=== PATIENT | female | born 1965 | race African-American/Black ===

== ENCOUNTER 2021-08-07 13:16 | Observation (INO) ==
[2021-08-07 15:23] LABS: Basophils # 0.1 10*3/uL (0.0-0.2); Basophils % 0.8 % (0.0-0.8); Eosinophils # 0.1 10*3/uL (0.0-0.87); Eosinophils % 1.4 % (0.00-10.9); Hematocrit 32.3 VOL% (35.7-47.0); Hemoglobin 9.9 GM/DL (12.0-16.0); Immature Granulocytes % 0.5 %; Immature Granulocytes Absolute 0.04 #; Lymphocytes # 1.8 10*3/uL (1.4-4.0); Lymphocytes % 21.3 % (21.3-54.2); Mean Corpuscular HGB Conc 30.7 GM/DL (32-36); Mean Corpuscular Volume 85.4 FL (87-102); Mean Platelet Volume 11.4 FL (9.6-12.0); Monocytes % 11.3 % (1.7-12.7); Neutrophils % 64.7 % (38.7-73.9); Platelet Count 259 T/CUMM (130-400); Red Blood Count 3.78 MC/CUMM (3.8-5.5); Red Cell Distribution Width 16.1 % (9.3-17.3); White Blood Count 8.5 T/CUMM (4-12)
[2021-08-07 15:45] LABS: Albumin 2.9 G/DL (3.4-5.0); Calcium 9.3 MG/DL (8.5-10.1); Osmolality,Calculated 283.7 MOS/KG (273-304); Potassium 4.1 MMOL/L (3.5-5.1); Total Protein 6.7 G/DL (6.4-8.2)
[2021-08-07] MEDS ORDERED: DOCUSATE SODIUM 100 MG CAPSULE PO PRN (17:06)
[2021-08-07] MEDS ORDERED: ACETAMINOPHEN 325 MG TABLET PO PRN (17:06)
[2021-08-07] MEDS ORDERED: DEXTROSE 10% 25 GM/250 ML BAG IV PRN (17:06)
[2021-08-07] MEDS ORDERED: ONDANSETRON 4 MG/2 ML VIAL IV PRN (17:06)
[2021-08-07] MEDS ORDERED: hydrALAZINE 20 MG/1 ML VIAL IV PRN (17:06)
[2021-08-07] MEDS ORDERED: GLUCAGON 1 MG VIAL IM PRN (17:06)
[2021-08-07] MEDS ORDERED: MAGNESIUM SULF RIDER 4 GM/100 ML PREMIX IV ONE ×2 (17:10→20:00)
[2021-08-07] MEDS ORDERED: NITROGLYCERIN SL 0.4 MG TABLET SL PRN (17:11)
[2021-08-07 18:19] LABS: Risk Ratio 4.43; Thyroid Stimulating Hormone 1.08 uIU/ml (0.358-3.74); VLDL Cholesterol 15.2 MG/DL
[2021-08-07] MEDS: FUROSEMIDE 40 MG/4 ML VIAL IV SCH (19:57)
[2021-08-07] MEDS: ENOXAPARIN 40 MG/0.4 ML SYRINGE SUBCUT SCH (19:58)
[2021-08-07] MEDS: ATORVASTATIN 80 MG TABLET PO SCH (22:06)
[2021-08-07] MEDS: INSULIN LISPRO 100 UNIT/ML SUBCUT SCH (22:07)
[2021-08-08 04:25] LABS: Basophils # 0.1 10*3/uL (0.0-0.2); Basophils % 0.6 % (0.0-0.8); Eosinophils # 0.1 10*3/uL (0.0-0.87); Eosinophils % 1.4 % (0.00-10.9); Hematocrit 30.4 VOL% (35.7-47.0); Hemoglobin 9.4 GM/DL (12.0-16.0); Immature Granulocytes % 0.2 %; Immature Granulocytes Absolute 0.02 #; Lymphocytes # 2.7 10*3/uL (1.4-4.0); Lymphocytes % 31.7 % (21.3-54.2); Mean Corpuscular HGB Conc 30.9 GM/DL (32-36); Mean Corpuscular Volume 85.2 FL (87-102); Mean Platelet Volume 11.4 FL (9.6-12.0); Neutrophils % 54.1 % (38.7-73.9); Platelet Count 231 T/CUMM (130-400); Red Blood Count 3.57 MC/CUMM (3.8-5.5); Red Cell Distribution Width 15.9 % (9.3-17.3); White Blood Count 8.6 T/CUMM (4-12)
[2021-08-08 04:53] LABS: Calcium 9.1 MG/DL (8.5-10.1); Osmolality,Calculated 281.5 MOS/KG (273-304); Potassium 3.5 MMOL/L (3.5-5.1)
[2021-08-08] MEDS ORDERED: NON-FORMULARY MEDICATION (Losartan 100 mg Tablet) PO SCH (09:00)
[2021-08-08] MEDS ORDERED: LOSARTAN 50 MG TABLET PO SCH (09:00)
[2021-08-08] MEDS ORDERED: SPIRONOLACTONE 50 MG TABLET PO SCH (09:00)
[2021-08-08] MEDS ORDERED: POTASSIUM CHLORIDE 20 MEQ TABLET PO ONE (09:10)
[2021-08-08] MEDS ORDERED: MAGNESIUM SULF RIDER 2 GM/50 ML PREMIX IV ONE (09:11)
[2021-08-08] MEDS: MAGNESIUM CHLORIDE 64 MG TABLET PO SCH (09:22)
[2021-08-08] MEDS: ASPIRIN CHEW 81 MG TABLET PO SCH (09:23)
[2021-08-08] MEDS: DAPAGLIFLOZIN 10 MG TABLET PO SCH (09:23)
[2021-08-08] MEDS: CLOPIDOGREL 75 MG TABLET PO SCH (09:23)
[2021-08-08] MEDS: METOPROLOL SUCCINATE XL 100 MG TABLET PO SCH (09:23)
[2021-08-08] MEDS: SPIRONOLACTONE 25 MG TABLET PO SCH (09:23)
[2021-08-08] MEDS: INSULIN LISPRO 100 UNIT/ML SUBCUT SCH ×4 (09:24→21:17)
[2021-08-08] MEDS ORDERED: ALTEPLASE 2 MG VIAL IV ONE (09:30)
[2021-08-08] MEDS ORDERED: HEPARIN 10,000 UNIT/10 ML VIAL IV SCH (09:30)
[2021-08-08] MEDS: FUROSEMIDE 40 MG/4 ML VIAL IV SCH (09:34)
[2021-08-08] MEDS: ASCORBIC ACID 500 MG TABLET PO SCH ×2 (11:04→21:17)
[2021-08-08] MEDS: MECLIZINE 12.5 MG TABLET PO SCH ×2 (11:16→21:17)
[2021-08-08] MEDS: ENOXAPARIN 40 MG/0.4 ML SYRINGE SUBCUT SCH (17:46)
[2021-08-08] MEDS: ATORVASTATIN 80 MG TABLET PO SCH (21:17)
[2021-08-09 05:04] LABS: Basophils # 0.1 10*3/uL (0.0-0.2); Basophils % 0.9 % (0.0-0.8); Eosinophils # 0.3 10*3/uL (0.0-0.87); Eosinophils % 3.7 % (0.00-10.9); Hematocrit 31.2 VOL% (35.7-47.0); Hemoglobin 9.5 GM/DL (12.0-16.0); Immature Granulocytes % 0.5 %; Immature Granulocytes Absolute 0.04 #; Lymphocytes # 2.4 10*3/uL (1.4-4.0); Lymphocytes % 28.1 % (21.3-54.2); Mean Corpuscular HGB Conc 30.4 GM/DL (32-36); Mean Corpuscular Volume 86.2 FL (87-102); Mean Platelet Volume 11.4 FL (9.6-12.0); Monocytes % 11.9 % (1.7-12.7); Neutrophils % 54.9 % (38.7-73.9); Platelet Count 233 T/CUMM (130-400); Red Blood Count 3.62 MC/CUMM (3.8-5.5); Red Cell Distribution Width 16.3 % (9.3-17.3); White Blood Count 8.6 T/CUMM (4-12)
[2021-08-09 05:38] LABS: Calcium 8.9 MG/DL (8.5-10.1); Osmolality,Calculated 281.8 MOS/KG (273-304); Potassium 3.7 MMOL/L (3.5-5.1)
[2021-08-09] MEDS ORDERED: SACUBITRIL/VALSARTAN 49-51 MG TABLET PO SCH (09:00)
[2021-08-09] MEDS ORDERED: FUROSEMIDE 40 MG TABLET PO SCH (09:00)
[2021-08-09] MEDS: MAGNESIUM CHLORIDE 64 MG TABLET PO SCH (09:06)
[2021-08-09] MEDS: ASPIRIN CHEW 81 MG TABLET PO SCH (09:07)
[2021-08-09] MEDS: SPIRONOLACTONE 25 MG TABLET PO SCH (09:07)
[2021-08-09] MEDS: MECLIZINE 12.5 MG TABLET PO SCH (09:07)
[2021-08-09] MEDS: ASCORBIC ACID 500 MG TABLET PO SCH (09:07)
[2021-08-09] MEDS: INSULIN LISPRO 100 UNIT/ML SUBCUT SCH ×2 (09:07→15:24)
[2021-08-09] MEDS: DAPAGLIFLOZIN 10 MG TABLET PO SCH (09:07)
[2021-08-09] MEDS: METOPROLOL SUCCINATE XL 100 MG TABLET PO SCH (09:07)
[2021-08-09] MEDS: CLOPIDOGREL 75 MG TABLET PO SCH (09:07)
[2021-08-09 11:45] VITALS: BP 128/70
== END 2021-08-09 14:50 | disposition home or self-care (01) ==
LOC: EDUNIT# → EDBD → N.EDINP 13:16 → N.ED 13:16 → SUATTDRO 17:06 → N.TELEN 20:45
PROVIDERS: ADMIT Internal Medicine; ATTEND Internal Medicine